=== PATIENT | male | born 1950 | race Asian ===

== ENCOUNTER → 2016-07-13 | Outpatient (CLI) | payer OTHER ==
[~2016-07-13] MED LIST: CARV6 PO; GLIP5 PO; METF500T4 PO
== END | disposition home or self-care (01) ==
LOC: EDSEX → RADPV 10:56
PROVIDERS: ATTEND Internal Medicine Nephrology
DX: N18.9 Chronic kidney disease, unspecified (principal); N27.1 Small kidney, bilateral
CPT/HCPCS: 76770

== ENCOUNTER 2016-08-20 14:01 | Emergency (ER) | payer OTHER ==
[~2016-08-20] VITALS: Ht 154.9 cm; Wt 60.0 kg
[2016-08-20] MEDS ORDERED: GLIP5 PO (14:06)
[2016-08-20] MEDS ORDERED: METF500T4 PO (14:06)
[2016-08-20] MEDS ORDERED: CARV6 PO (14:06)
[2016-08-20 14:12] LABS: GLUCOSE,POINT OF CARE 94 MG/DL (70-110)
[2016-08-20 15:20] LABS: BASOPHILS % (AUTO) 0.8 % (0.0-2.0); EOSINOPHILS % (AUTO) 3.2 % (1.0-6.0); HEMATOCRIT 29.6 % (36-46); LYMPHOCYTES # (AUTO) 1.7 K/uL (1.0-4.8); LYMPHOCYTES % (AUTO) 18.5 % (22.0-44.0); MEAN CORPUSCULAR HEMOGLOBIN 29.5 pg (26.0-34.0); MEAN CORPUSCULAR HGB CONC 33.8 G/dL (31.0-37.0); MEAN CORPUSCULAR VOLUME 87 fL (80-100); MONOCYTES # (AUTO) 0.6 K/uL (0.1-1.0); MONOCYTES % (AUTO) 6.7 % (2.0-9.0); NEUTROPHILS # (AUTO) 6.4 K/uL (1.8-7.7); NEUTROPHILS % (AUTO) 70.8 % (40.0-70.0); PLATELET COUNT (AUTO) 317 K/uL (150-450); RED BLOOD CELL COUNT(AUTO) 3.39 MIL/uL (4.00-5.20); RED CELL DISTRIBUTION WIDTH 13.2 % (11.5-14.5)
[2016-08-20 15:44] LABS: CALCIUM, TOTAL 9.5 mg/dL (8.8-10.5); CREATININE 1.61 mg/dL (0.60-1.30); POTASSIUM 4.7 mmol/L (3.5-5.1)
[2016-08-20 15:58] LABS: ALBUMIN 3.8 g/dL (3.4-5.0); BILIRUBIN,TOTAL 0.2 mg/dL (0.1-1.0); TOTAL PROTEIN, SERUM 7.8 g/dL (6.4-8.2)
[2016-08-20 16:58] VITALS: BP 167/80
== END 2016-08-20 17:50 | disposition home or self-care (01) ==
LOC: EMS 14:05
DX: R07.89 Other chest pain (principal); M25.511 Pain in right shoulder; F41.9 Anxiety disorder, unspecified; I10 Essential (primary) hypertension; E11.9 Type 2 diabetes mellitus without complications
CPT/HCPCS: 82962; 93005; 99285

== ENCOUNTER 2018-08-07 09:49 | Emergency (ER) | payer OTHER ==
[~2018-08-07] VITALS: Ht 152.4 cm; Wt 72.7 kg
[~2018-08-07 09:49] MED LIST changes: +METF-960 PO; -METF500T4 PO
[2018-08-07] MEDS ORDERED: LINA5TAB PO (09:57)
[2018-08-07] MEDS ORDERED: SODI650T PO (10:01)
[2018-08-07] MEDS ORDERED: MethylPREDNISolone SOD SUCC 125 MG/2 ML VIAL IVP ONE (10:15)
[2018-08-07] MEDS ORDERED: FAMOTIDINE 10 MG/ML 2 ML VIAL IVP ONE (10:15)
[2018-08-07] MEDS ORDERED: DiphenhydrAMINE HCL 50 MG/ML VIAL IVP ONE (10:15)
[2018-08-07 12:40] VITALS: BP 142/72
[2018-08-08 19:58] LABS: GLUCOSE,POINT OF CARE 296 MG/DL (70-110)
== END 2018-08-07 12:45 | disposition home or self-care (01) ==
LOC: EMS 09:50
DX: T78.40XA Allergy, unspecified, initial encounter (principal); I10 Essential (primary) hypertension; E11.9 Type 2 diabetes mellitus without complications; Z79.84 Long term (current) use of oral hypoglycemic drugs; X58.XXXA Exposure to other specified factors, initial encounter
CPT/HCPCS: 82962; 96374; 96375; 99285; J1200; J2930; J3490